=== PATIENT | male | born 1980 | race Caucasian/White ===

== ENCOUNTER 2024-05-19 03:57 | Day surgery (SDC) | payer OTHER ==
[2024-05-17 10:15] VITALS: BMI 35.2
[2024-05-19] MEDS ORDERED: LIDOCAINE HCL 1%, 10 MG/ML (20ML VIAL) ONE (07:24)
[2024-05-19] MEDS ORDERED: ACETAMINOPHEN INJECTION 100 ML ONE (07:51)
[2024-05-19] MEDS ORDERED: DEXMEDETOMIDINE HCL 200 MCG/2 ML IVPB ONE (07:51)
[2024-05-19] MEDS ORDERED: PROPOFOL 20 ML ONE (07:57)
[2024-05-19] MEDS ORDERED: MIDAZOLAM HCL 2 MG/2 ML SINGLE DOSE VIAL ONE (07:57)
[2024-05-19] MEDS ORDERED: ROCURONIUM BROMIDE 50 MG/5 ML SYRINGE ONE (07:57)
[2024-05-19] MEDS ORDERED: SUCCINYLCHOLINE CHLORIDE 200 MG/10 ML SYRINGE ONE (07:57)
[2024-05-19] MEDS ORDERED: LIDOCAINE 1%/EPI 1:100000 (20 ML MULTI DOSE VIAL) ONE (08:38)
[2024-05-19] MEDS ORDERED: BUPIVACAINE HCL/PF 0.5% (5MG/ML) 10 ML VIAL ONE (08:38)
[2024-05-19] MEDS ORDERED: ONDANSETRON 4 MG/2 ML VIAL ONE (09:07)
[2024-05-19] MEDS ORDERED: DEXAMETHASONE SOD PHOSPHATE 4 MG/1 ML VIAL ONE (09:07)
[2024-05-19] MEDS ORDERED: LIDOCAINE HCL/PF 2% SDV 5ML VIAL ONE (09:07)
[2024-05-19] MEDS ORDERED: oxyCODONE HCL 5 MG TABLET PO PRN (10:16)
[2024-05-19] MEDS ORDERED: ONDANSETRON 4 MG/2 ML VIAL IVPUSH PRN (10:16)
[2024-05-19] MEDS: LACTATED RINGERS SOLUTION 1,000 ML IV SCH (10:34)
[2024-05-19 11:37] VITALS: TEMP 97.8
[2024-05-19 12:49] VITALS: BP 130/77; PULSE 87; RESP 20
== END 2024-05-19 13:25 | disposition home or self-care (01) ==
LOC: JASU-SURG 03:57
PROVIDERS: ATTEND Surgery
PROC: 0CBH0ZZ Excision of Left Submaxillary Gland, Open Approach (ICD-10-PCS; principal; 2024-05-19 09:01)
DX: R59.0 Localized enlarged lymph nodes (principal)
CPT/HCPCS: 86850; 86900; 86901; 88307-TC; 94760; J0131